=== PATIENT | male | born 1995 ===

== ENCOUNTER 2021-01-24 06:29 | Inpatient (IN) ==
[2021-01-24] MEDS ORDERED: Lactated Ringers 1000 ml BAG 1,000 ML IV ONE ×2 (07:18→08:39)
[2021-01-24 08:03] LABS: ABS Lymphocytes 0.7 10^3/ul (1.0-4.8); ABS Neutrophils 10.5 10^3/ul (1.5-7.7); Hematocrit 45 % (42-52); Hemoglobin 15.4 g/dL (14.0-18.0); Lymphocyte % 5.7 %; Mean Corpuscular HGB Conc 34 g/dL (31-36); Mean Corpuscular Hemoglobin 30 pg (27-31); Mean Corpuscular Volume 87 fL (80-94); Mean Platelet Volume 8.6 fL (7.4-10.4); Platelet Count 326 10^3/uL (150-450); Red Blood Count 5.21 10^6 /uL (4.18-5.48); Red Cell Distribution Width 13 % (10-15); White Blood Count 12.1 10^3/uL (3.5-10.8)
[2021-01-24 08:20] LABS: Albumin 4.3 g/dL (3.2-5.2); Albumin/Globulin Ratio 1.3 (1-3); Calcium 9.6 mg/dL (8.6-10.3); Globulin 3.4 g/dL (2-4); Total Bilirubin 0.7 mg/dL (0.2-1.0); Total Protein 7.7 g/dL (6.4-8.9)
[2021-01-24] MEDS ORDERED: Ondansetron 4 mg VIAL 2 MG/ML 2 ml VIAL IV ONE (10:02)
[2021-01-24 10:46] LABS: Erythrocyte Sed Rate 10 mm/Hr (0-14)
[2021-01-24] MEDS ORDERED: Iohexol 300 (CONTRAST) 10 ML SDV IV ONE (11:55)
[2021-01-24 12:02] LABS: Rapid COVID-19 Molecular Undetected (Undetected)
[2021-01-24] MEDS: Pantoprazole VIAL 40 MG VIAL IV SCH (12:05)
[2021-01-24] MEDS: Morphine 2 MG/ML SYRINGE IV PRN ×3 (12:06→23:34)
[2021-01-24] MEDS: NS 0.9% 1000 ml BAG 1,000 ML IV SCH ×2 (14:12→23:40)
[2021-01-24] MEDS: metroNIDAZOLE IV 250 MG/50ML 50 ML IVPB SCH ×2 (14:46→23:15)
[2021-01-24] MEDS: Ondansetron 4 mg VIAL 2 MG/ML 2 ml VIAL IV PRN (21:22)
[2021-01-24] MEDS: metroNIDAZOLE IV 500 MG/100ML 100 ML IVPB SCH (23:41)
[2021-01-25] MEDS: Ondansetron 4 mg VIAL 2 MG/ML 2 ml VIAL IV PRN ×3 (03:08→18:18)
[2021-01-25] MEDS: Morphine 2 MG/ML SYRINGE IV PRN ×4 (03:52→22:29)
[2021-01-25] MEDS: metroNIDAZOLE IV 500 MG/100ML 100 ML IVPB SCH ×3 (05:54→22:33)
[2021-01-25] MEDS: Pantoprazole VIAL 40 MG VIAL IV SCH (09:38)
[2021-01-25 09:44] LABS: ABS Lymphocytes 1.1 10^3/ul (1.0-4.8); ABS Neutrophils 5.8 10^3/ul (1.5-7.7); Eosinophil % 0.1 %; Hematocrit 43 % (42-52); Hemoglobin 14.4 g/dL (14.0-18.0); Lymphocyte % 14.2 %; Mean Corpuscular HGB Conc 34 g/dL (31-36); Mean Corpuscular Hemoglobin 29 pg (27-31); Mean Corpuscular Volume 87 fL (80-94); Mean Platelet Volume 8.6 fL (7.4-10.4); Nucleated Red Blood Cells % 0.1; Platelet Count 316 10^3/uL (150-450); Red Blood Count 4.93 10^6 /uL (4.18-5.48); Red Cell Distribution Width 14 % (10-15)
[2021-01-25 10:00] LABS: Calcium 9.1 mg/dL (8.6-10.3)
[2021-01-25] MEDS: NS 0.9% 1000 ml BAG 1,000 ML IV SCH ×2 (11:57→22:30)
[2021-01-25] MEDS: Hydrocortisone INJ 100 MG/2ML 2 ML VIAL IV SCH (20:11)
[2021-01-26] MEDS: Hydrocortisone INJ 100 MG/2ML 2 ML VIAL IV SCH ×5 (00:09→23:59)
[2021-01-26] MEDS: Ondansetron 4 mg VIAL 2 MG/ML 2 ml VIAL IV PRN ×3 (00:09→17:12)
[2021-01-26] MEDS: metroNIDAZOLE IV 500 MG/100ML 100 ML IVPB SCH (06:08)
[2021-01-26 07:32] LABS: ABS Lymphocytes 0.7 10^3/ul (1.0-4.8); ABS Monocytes 0.7 10^3/ul (0-0.8); ABS Neutrophils 3.1 10^3/ul (1.5-7.7); Hematocrit 39 % (42-52); Hemoglobin 13.4 g/dL (14.0-18.0); Lymphocyte % 15.2 %; Mean Corpuscular HGB Conc 34 g/dL (31-36); Mean Corpuscular Hemoglobin 30 pg (27-31); Mean Corpuscular Volume 88 fL (80-94); Mean Platelet Volume 9.1 fL (7.4-10.4); Platelet Count 268 10^3/uL (150-450); Red Blood Count 4.49 10^6 /uL (4.18-5.48); Red Cell Distribution Width 14 % (10-15); White Blood Count 4.5 10^3/uL (3.5-10.8)
[2021-01-26 07:46] LABS: Calcium 8.7 mg/dL (8.6-10.3); Potassium 3.9 mmol/L (3.5-5.0)
[2021-01-26] MEDS: Morphine 2 MG/ML SYRINGE IV PRN ×4 (09:14→23:30)
[2021-01-26] MEDS: Pantoprazole VIAL 40 MG VIAL IV SCH (11:26)
[2021-01-26] MEDS: D5W 1/2 NS 1000 ml BAG 1,000 ML IV SCH ×2 (13:10→21:52)
[2021-01-26] MEDS ORDERED: Prochlorperazine 5 mg/ml 2 ml VIAL (10 mg) IV PRN (15:25)
[2021-01-26] MEDS ORDERED: Acetaminophen IV 1 GM/100ML 100 ML IV PRN (17:42)
[2021-01-27] MEDS: Hydrocortisone INJ 100 MG/2ML 2 ML VIAL IV SCH ×4 (06:11→23:25)
[2021-01-27 06:17] LABS: Hematocrit 38 % (42-52); Hemoglobin 12.8 g/dL (14.0-18.0); Mean Corpuscular HGB Conc 34 g/dL (31-36); Mean Corpuscular Hemoglobin 29 pg (27-31); Mean Corpuscular Volume 88 fL (80-94); Mean Platelet Volume 9.4 fL (7.4-10.4); Platelet Count 276 10^3/uL (150-450); Red Blood Count 4.38 10^6 /uL (4.18-5.48); Red Cell Distribution Width 14 % (10-15); White Blood Count 4.7 10^3/uL (3.5-10.8)
[2021-01-27] MEDS: D5W 1/2 NS 1000 ml BAG 1,000 ML IV SCH (06:20)
[2021-01-27 06:36] LABS: Calcium 8.4 mg/dL (8.6-10.3); Magnesium 1.9 mg/dL (1.9-2.7); Potassium 3.6 mmol/L (3.5-5.0)
[2021-01-27 11:38] LABS: C Reactive Protein 21.09 mg/L (<8.01)
[2021-01-27 11:39] LABS: C Reactive Protein 37.17 mg/L (<8.01)
[2021-01-27] MEDS ORDERED: Potassium Chlor 20 meq TAB.ER PO ONE (11:45)
[2021-01-27] MEDS: Pantoprazole VIAL 40 MG VIAL IV SCH (12:48)
[2021-01-28] MEDS: Hydrocortisone INJ 100 MG/2ML 2 ML VIAL IV SCH ×3 (06:05→19:43)
[2021-01-28 06:08] LABS: Hematocrit 39 % (42-52); Hemoglobin 13.2 g/dL (14.0-18.0); Mean Corpuscular HGB Conc 34 g/dL (31-36); Mean Corpuscular Hemoglobin 30 pg (27-31); Mean Corpuscular Volume 88 fL (80-94); Platelet Count 278 10^3/uL (150-450); Red Blood Count 4.47 10^6 /uL (4.18-5.48); Red Cell Distribution Width 14 % (10-15); White Blood Count 4.2 10^3/uL (3.5-10.8)
[2021-01-28 06:23] LABS: Calcium 8.7 mg/dL (8.6-10.3); Magnesium 2.2 mg/dL (1.9-2.7); Potassium 3.9 mmol/L (3.5-5.0)
[2021-01-28] MEDS ORDERED: Zinc Oxide 40% (TOPICAL) TUBE TOPICAL PRN (11:26)
[2021-01-28] MEDS: Pantoprazole VIAL 40 MG VIAL IV SCH (12:26)
[2021-01-28] MEDS ORDERED: Gadoteridol (CONTRAST) 279.3 MG/ML 10 ML IV ONE (15:03)
[2021-01-28] MEDS ORDERED: PEG 3000 GI LAVAGE 1 GALLON PO ONE (17:08)
[2021-01-29] MEDS: Hydrocortisone INJ 100 MG/2ML 2 ML VIAL IV SCH ×3 (04:58→21:01)
[2021-01-29 06:27] LABS: Hematocrit 42 % (42-52); Hemoglobin 14.2 g/dL (14.0-18.0); Mean Corpuscular HGB Conc 34 g/dL (31-36); Mean Corpuscular Hemoglobin 30 pg (27-31); Mean Corpuscular Volume 87 fL (80-94); Mean Platelet Volume 8.9 fL (7.4-10.4); Platelet Count 309 10^3/uL (150-450); Red Blood Count 4.82 10^6 /uL (4.18-5.48); Red Cell Distribution Width 14 % (10-15); White Blood Count 5.3 10^3/uL (3.5-10.8)
[2021-01-29 06:44] LABS: Albumin 3.4 g/dL (3.2-5.2); Albumin/Globulin Ratio 1.4 (1-3); C Reactive Protein 10.92 mg/L (<8.01); Calcium 8.8 mg/dL (8.6-10.3); Globulin 2.5 g/dL (2-4); Potassium 3.5 mmol/L (3.5-5.0); Total Bilirubin 0.3 mg/dL (0.2-1.0); Total Protein 5.9 g/dL (6.4-8.9)
[2021-01-29] MEDS ORDERED: KCL 10 MEQ/50 ML IVPREMIX 10 MEQ/50 ML BAG IV SCH (08:00)
[2021-01-29] MEDS: KCL 20 MEQ/100 ML IVPREMIX 20 MEQ/100 ML BAG IV SCH ×2 (08:33→12:31)
[2021-01-29 10:37] LABS: Hepatitis B Surface Ab Not Immune (Immune)
[2021-01-29] MEDS: Pantoprazole VIAL 40 MG VIAL IV SCH (11:15)
[2021-01-29] MEDS ORDERED: Midazolam 10 mg/10 ml VIAL 1 mg/ml 10 ml VIAL (10 mg) ONE (13:52)
[2021-01-29] MEDS ORDERED: diPHENhydraMINE IV 50 MG/ML 1 ml VIAL (BENADRYL) ONE (13:52)
[2021-01-29] MEDS ORDERED: fentaNYL 100 mcg/2 ml 50 MCG/ML VIAL ONE (13:52)
[2021-01-30] MEDS: Hydrocortisone INJ 100 MG/2ML 2 ML VIAL IV SCH ×2 (04:00→11:21)
[2021-01-30 05:11] LABS: Hematocrit 39 % (42-52); Mean Corpuscular HGB Conc 34 g/dL (31-36); Mean Corpuscular Hemoglobin 30 pg (27-31); Mean Corpuscular Volume 88 fL (80-94); Mean Platelet Volume 8.9 fL (7.4-10.4); Platelet Count 329 10^3/uL (150-450); Red Cell Distribution Width 14 % (10-15); White Blood Count 7.9 10^3/uL (3.5-10.8)
[2021-01-30 05:27] LABS: C Reactive Protein 6.28 mg/L (<8.01); Calcium 8.1 mg/dL (8.6-10.3); Magnesium 2.2 mg/dL (1.9-2.7); Potassium 3.7 mmol/L (3.5-5.0)
[2021-01-30] MEDS: Pantoprazole VIAL 40 MG VIAL IV SCH (11:21)
[2021-01-30 12:33] LABS: Hepatitis Be Antibody Negative (Negative)
[2021-01-31 08:29] VITALS: BP 119/66
[2021-02-02 14:50] LABS: TB1 Ag minus Nil Result -0.01 IU/mL; TB2 Ag minus Nil Result -0.01 IU/mL
[2021-02-02 14:52] LABS: QuantiferonTb Gold Plus Result Negative (Negative)
[2021-02-03 00:05] LABS: Calprotectin 664 mcg/g
== END 2021-01-31 11:28 | disposition home or self-care (01) | DRG 245 ==
LOC: EDHOLD 06:29 → ED 06:29 → SUATTDRO 10:34 → MED 19:13 → SUATTDRO 01-25 19:32
PROVIDERS: ADMIT Hospitalist; ATTEND Internal Medicine

== ENCOUNTER 2021-03-08 11:57 | Inpatient (IN) ==
[2021-03-08 15:41] LABS: ABS Lymphocytes 0.6 10^3/ul (1.0-4.8); ABS Monocytes 0.7 10^3/ul (0-0.8); ABS Neutrophils 13.9 10^3/ul (1.5-7.7); Hematocrit 44 % (42-52); Hemoglobin 14.6 g/dL (14.0-18.0); Mean Corpuscular HGB Conc 33 g/dL (31-36); Mean Corpuscular Hemoglobin 29 pg (27-31); Mean Corpuscular Volume 89 fL (80-94); Mean Platelet Volume 8.6 fL (7.4-10.4); Platelet Count 337 10^3/uL (150-450); Red Cell Distribution Width 15 % (10-15); White Blood Count 15.2 10^3/uL (3.5-10.8)
[2021-03-08 15:59] LABS: Albumin 4.4 g/dL (3.2-5.2); Albumin/Globulin Ratio 1.6 (1-3); C Reactive Protein 7.24 mg/L (<8.01); Calcium 9.5 mg/dL (8.6-10.3); Globulin 2.8 g/dL (2-4); Total Bilirubin 0.9 mg/dL (0.2-1.0); Total Protein 7.2 g/dL (6.4-8.9); eGFR CKD-EPI 114.6 (>60)
[2021-03-08] MEDS ORDERED: Iohexol 300 (CONTRAST) 10 ML SDV IV ONE (16:03)
[2021-03-08] MEDS ORDERED: methylPREDNISolone SOD 40 mg/ml 1 ml VIAL IV ONE (17:53)
[2021-03-08] MEDS ORDERED: Ondansetron 4 mg VIAL 2 MG/ML 2 ml VIAL IV PRN (18:53)
[2021-03-08] MEDS ORDERED: Lactated Ringers 1000 ml BAG 1,000 ML IV SCH (19:00)
[2021-03-08 19:37] LABS: Rapid COVID-19 Molecular Undetected (Undetected)
[2021-03-08] MEDS: Enoxaparin 40 MG/0.4 ML SYR SUBCUT SCH (21:31)
[2021-03-09] MEDS: methylPREDNISolone SOD 40 mg/ml 1 ml VIAL IV SCH ×3 (01:57→17:54)
[2021-03-09 05:36] LABS: ABS Lymphocytes 0.8 10^3/ul (1.0-4.8); ABS Monocytes 0.2 10^3/ul (0-0.8); ABS Neutrophils 7.6 10^3/ul (1.5-7.7); Hematocrit 40 % (42-52); Hemoglobin 13.3 g/dL (14.0-18.0); Lymphocyte % 8.8 %; Mean Corpuscular HGB Conc 34 g/dL (31-36); Mean Corpuscular Hemoglobin 30 pg (27-31); Mean Corpuscular Volume 89 fL (80-94); Mean Platelet Volume 8.8 fL (7.4-10.4); Platelet Count 296 10^3/uL (150-450); Red Blood Count 4.46 10^6 /uL (4.18-5.48); Red Cell Distribution Width 14 % (10-15); White Blood Count 8.6 10^3/uL (3.5-10.8)
[2021-03-09] MEDS ORDERED: [UNRECOGNIZED DRUG - REMARK] SUBCUT ONE (18:00)
[2021-03-09] MEDS: Enoxaparin 40 MG/0.4 ML SYR SUBCUT SCH (20:10)
[2021-03-10] MEDS: methylPREDNISolone SOD 40 mg/ml 1 ml VIAL IV SCH (02:07)
[2021-03-10 11:27] VITALS: BP 116/74
== END 2021-03-10 16:55 | disposition home or self-care (01) | DRG 245 ==
LOC: ED 11:57 → SSU 18:50 → SUATTDRO 18:50 → SSU 03-09 01:42
PROVIDERS: ADMIT Internal Medicine; ATTEND Internal Medicine